=== PATIENT | female | born 1970 ===

== ENCOUNTER 2020-03-26 07:30 | Inpatient (IN) | payer OTHER ==
[~2020-03-26] VITALS: Ht 160 cm; Wt 75.7 kg
[2020-03-26] MEDS ORDERED: XANAX2 MG PO (08:58)
[2020-03-26] MEDS ORDERED: LOSARTAN POTASS50 MG PO (08:59)
[2020-03-26] MEDS ORDERED: GLIPIZIDE XL2.5 MG PO (08:59)
[2020-03-26] MEDS ORDERED: CLONAZEPAM1 M1 PO (08:59)
[2020-03-26] MEDS ORDERED: AMBIEN10 MG PO (08:59)
[2020-03-26] MEDS ORDERED: LYRICA100 MG PO (09:00)
[2020-03-26] MEDS ORDERED: LEXAPRO20 MG PO (09:00)
[2020-03-26] MEDS ORDERED: ATORVASTATIN CA20 MG PO (09:00)
[2020-03-26] MEDS ORDERED: VISTARIL50 MG PO (09:01)
[2020-04-01] MEDS ORDERED: SIMETHICONE125 M1 PO (14:39)
[2020-04-01] MEDS ORDERED: OXYC1TAB9 PO (14:39)
[2020-04-01] MEDS ORDERED: DOCUSATE SODIU100 MG PO (14:39)
== END 2020-04-01 14:54 | DRG 743 ==
LOC: O/R 03-29 06:00 → OB/GYN 03-29 07:30
PROVIDERS: ADMIT Obstetrics & Gynecology; ATTEND Obstetrics & Gynecology
PROC: 0UT70ZZ Resection of Bilateral Fallopian Tubes, Open Approach (ICD-10-PCS; 2020-03-29)
PROC: 0UT90ZZ Resection of Uterus, Open Approach (ICD-10-PCS; principal; 2020-03-29 13:00)
DX: N80.0 Endometriosis of uterus (principal); N84.0 Polyp of corpus uteri; Z20.828 Contact with and (suspected) exposure to other viral communicable diseases

== ENCOUNTER 2020-04-12 15:00 | Inpatient (IN) | payer OTHER ==
[~2020-04-12] VITALS: Ht 160 cm; Wt 72.6 kg
[~2020-04-12 15:00] MED LIST: AMBIEN10 MG PO; ATORVASTATIN CA20 MG PO; CLONAZEPAM1 M1 PO; DOCUSATE SODIU100 MG PO; GLIPIZIDE XL2.5 MG PO; LEXAPRO20 MG PO; LOSARTAN POTASS50 MG PO; LYRICA100 MG PO; OXYC1TAB9 PO; SIMETHICONE125 M1 PO; VISTARIL50 MG PO; XANAX2 MG PO
== END 2020-04-21 17:12 | disposition left against medical advice (07) | DRG 759 ==
LOC: OB/GYN 15:00
PROVIDERS: ADMIT Obstetrics & Gynecology; ATTEND Obstetrics & Gynecology
PROC: BW4GZZZ Ultrasonography of Pelvic Region (ICD-10-PCS; principal; 2020-04-12)
PROC: BW21ZZZ Computerized Tomography (CT Scan) of Abdomen and Pelvis (ICD-10-PCS; 2020-04-13)
PROC: 4A033R1 Measurement of Arterial Saturation, Peripheral, Percutaneous Approach (ICD-10-PCS; 2020-04-14)
PROC: 3E0F7GC Introduction of Other Therapeutic Substance into Respiratory Tract, Via Natural or Artificial Opening (ICD-10-PCS; 2020-04-15)
PROC: 02HV33Z Insertion of Infusion Device into Superior Vena Cava, Percutaneous Approach (ICD-10-PCS; 2020-04-17)
PROC: 0W9J30Z Drainage of Pelvic Cavity with Drainage Device, Percutaneous Approach (ICD-10-PCS; 2020-04-19)
PROC: B54MZZZ Ultrasonography of Right Upper Extremity Veins (ICD-10-PCS; 2020-04-19)
PROC: BW21ZZZ Computerized Tomography (CT Scan) of Abdomen and Pelvis (ICD-10-PCS; 2020-04-21)
DX: N73.8 Other specified female pelvic inflammatory diseases (principal); M79.7 Fibromyalgia; I11.9 Hypertensive heart disease without heart failure; E11.9 Type 2 diabetes mellitus without complications; F41.8 Other specified anxiety disorders; F43.23 Adjustment disorder with mixed anxiety and depressed mood; F32.9 Major depressive disorder, single episode, unspecified; J45.20 Mild intermittent asthma, uncomplicated; Z20.828 Contact with and (suspected) exposure to other viral communicable diseases